=== PATIENT | female | born 1990 | race Caucasian/White ===

== ENCOUNTER → 2022-10-25 | Outpatient (CLI) | payer SELFPAY ==
[2022-10-25 13:09] LABS: Absolute Neutrophil Count 3.7 X10^3/uL (2.0-7.7); Basophil# 0.08 X10^3/uL; Basophil% 1.2 % (0-1); Eosinophil# 0.16 X10^3/uL; Eosinophils% 2.5 % (0-5); Hematocrit 39.9 % (37-47); Hemoglobin 13.1 g/dL (12.0-15.0); Lymphocyte % 31.2 % (19-41); Mean Corp Hgb Conc 32.8 g/dL (32-36); Mean Corpuscular Hgb 31.3 pg (27.0-32.0); Mean Corpuscular Volume 95.2 fL (81-99); Monocyte# 0.42 X10^3/uL; Monocyte% 6.6 % (0-10); NRBC Flagged by Analyzer 0 % (0-5); Neutrophil # 3.74 X10^3/uL (2.7-7.7); Neutrophil % 58.3 % (47-70); Platelet Count 354 K/mm3 (150-450); RBC Distribution Width CV 12.4 % (11.6-14.6); RBC Distribution Width SD 43.1 fl (35.1-43.9); Red Blood Count 4.19 M/mm3 (4.2-5.4); White Blood Count 6.4 K/mm3 (4.4-11.0)
[2022-10-25 13:32] LABS: ALB/GLOB Ratio 1.1 RATIO (0.9-2.4); AST(SGOT) 16 U/L (15-37); Alanine Aminotransfer ALT/SGPT 50 U/L (13-56); Albumin, Serum 3.9 g/dL (3.2-5.0); Alkaline Phosphatase 92 U/L (45-117); Anion Gap 5 (5-15); BUN 10 mg/dL (7-18); BUN/Creat Ratio 12.9 RATIO (10-20); Calcium,Total 9.6 mg/dL (8.5-10.1); Chloride 108 mmol/L (98-107); Creatinine, Serum 0.78 mg/dL (0.55-1.02); EST Glomerular Filtration Rate 92 mL/min (>60); Est Glom Filt Rate - Afr Amer 112 mL/min (>60); Globulin 3.7 g/dL (2.2-4.2); Glucose 97 mg/dL (74-106); Lipase 46 U/L (13-75); Potassium 4.1 mmol/L (3.5-5.1); Protein, Total 7.6 g/dL (6.4-8.2); Sodium Level 139 mmol/L (136-145)
== END | disposition home or self-care (01) ==
PROVIDERS: PCP Internal Medicine; Referring Provider Internal Medicine; Visit Provider Internal Medicine
DX: K80.50 Calculus of bile duct without cholangitis or cholecystitis without obstruction (principal)
CPT/HCPCS: 36415; 80053; 83690; 85025

== ENCOUNTER → 2022-11-12 | Outpatient (CLI) | payer SELFPAY ==
--- NOTE | 2022-11-12 13:25 | MRI_ITS ---
INDICATION: Common bile duct stone, abdomen pain, discomfort, gallstones, infection x1yr EXAMINATION: MRI - MR MRCP W/O Contrast TECHNIQUE: Multiplanar and multisequence MR images of the abdomen were obtained with MRCP sequence. Three-dimensional post-processing reconstructions were performed. IV Contrast Dosage and Agent: None. COMPARISON: No relevant prior comparison study available FINDINGS: LIVER: No mass. Normal morphology. GALLBLADDER AND BILIARY TREE: Multiple stones are seen in the gallbladder lumen. No wall thickening or adjacent edema. The CBD measures 0.3 cm. No intra- or extrahepatic biliary dilation. There is a 0.4 cm filling defect seen within the common duct, best seen on series 1002 image 1. PANCREAS: No mass. No pancreatic duct dilation. SPLEEN: Non-enlarged. ADRENAL GLANDS: No nodules. KIDNEYS: Normal renal size and position. No hydronephrosis. No mass. LYMPH NODES: No enlarged periportal or retroperitoneal lymph nodes. PERITONEUM: No ascites or fluid collection. VESSELS: Aorta is non-dilated. LOWER CHEST: No pleural effusion. MRI/MRCP Abdomen without Contrast IMPRESSION: Cholelithiasis. No biliary ductal dilatation. Small filling defect seen within the common bile duct. Electronically Signed: Ambrose Dickinson MD at 2:11 EDT ,
== END | disposition home or self-care (01) ==
PROVIDERS: PCP Internal Medicine; Referring Provider Internal Medicine; Visit Provider Internal Medicine
DX: K80.50 Calculus of bile duct without cholangitis or cholecystitis without obstruction (principal)
CPT/HCPCS: 74181

== ENCOUNTER → 2023-09-30 | Outpatient (CLI) | payer SELFPAY ==
[2023-09-30 11:29] LABS: Absolute Lymphocyte Count 1.28 X10^3/uL (0.83-4.51); Absolute Neutrophil Count 2.2 X10^3/uL (2.0-7.7); Basophil# 0.04 X10^3/uL; Eosinophil# 0.12 X10^3/uL; Hemoglobin 12.9 g/dL (12.0-15.0); Lymphocyte # 1.28 X10^3/ul (0.83-4.51); Lymphocyte % 32.5 % (19-41); Mean Corp Hgb Conc 33.1 g/dL (32-36); Mean Corpuscular Hgb 31.5 pg (27.0-32.0); Mean Corpuscular Volume 95.1 fL (81-99); Mean Platelet Vol. 10.4 fl (6.2-12.0); Monocyte# 0.29 X10^3/uL; Monocyte% 7.4 % (0-10); NRBC Flagged by Analyzer 0 % (0-5); Neutrophil % 55.8 % (47-70); Platelet Count 287 K/mm3 (150-450); RBC Distribution Width CV 11.9 % (11.6-14.6); RBC Distribution Width SD 41.3 fl (35.1-43.9); White Blood Count 3.9 K/mm3 (4.4-11.0)
[2023-09-30 12:05] LABS: ALB/GLOB Ratio 1.1 RATIO (0.9-2.4); AST(SGOT) 33 U/L (15-37); Alanine Aminotransfer ALT/SGPT 53 U/L (13-56); Albumin, Serum 3.9 g/dL (3.2-5.0); Alkaline Phosphatase 70 U/L (45-117); Anion Gap 2 (5-15); BUN 11 mg/dL (7-18); BUN/Creat Ratio 15.9 RATIO (10-20); Calcium,Total 10.4 mg/dL (8.5-10.1); Chloride 107 mmol/L (98-107); Creatinine, Serum 0.69 mg/dL (0.55-1.02); EST Glomerular Filtration Rate 105 mL/min (>60); Est Glom Filt Rate - Afr Amer 127 mL/min (>60); Globulin 3.4 g/dL (2.2-4.2); Glucose 93 mg/dL (74-106); Potassium 4.5 mmol/L (3.5-5.1); Protein, Total 7.3 g/dL (6.4-8.2); Sodium Level 138 mmol/L (136-145)
== END | disposition home or self-care (01) ==
LOC: LAB 10:33
PROVIDERS: PCP Internal Medicine; Referring Provider Student in an Organized Health Care Education/Training Program; Visit Provider Student in an Organized Health Care Education/Training Program
DX: K80.50 Calculus of bile duct without cholangitis or cholecystitis without obstruction (principal)
CPT/HCPCS: 36415; 80053; 85025

== ENCOUNTER → 2023-10-18 | Outpatient (CLI) | payer SELFPAY ==
--- NOTE | 2023-10-18 15:43 | MRI_ITS ---
EXAM: MR ABDOMEN WITHOUT INTRAVENOUS CONTRAST, MRCP PROTOCOL CLINICAL INDICATION: CBD stone TECHNIQUE: Multiplanar and multisequence MR images of the abdomen without intravenous contrast obtained with MRCP sequence. Three-dimensional post-processing reconstructions were performed. COMPARISON: 11/12/2022. FINDINGS: LOWER THORAX: Unremarkable. No pleural effusion. LIVER: Unremarkable. Normal morphology. GALLBLADDER AND BILE DUCTS: Cholelithiasis. No gallbladder distention or wall edema. No intra- or extrahepatic biliary ductal dilation. No choledochal filling defect. PANCREAS: Unremarkable. No focal cystic mass. No pancreatic duct dilation. SPLEEN: Unremarkable. Non-enlarged. ADRENALS: Unremarkable. No nodules. KIDNEYS AND URETERS: Unremarkable. Normal renal size and position. No hydronephrosis. INTRAPERITONEAL SPACE: Unremarkable. No ascites or other fluid collection. VASCULATURE: Unremarkable. Abdominal aorta is non-dilated. LYMPH NODES: No enlarged lymph nodes. MRI/MRCP Abdomen without Contrast IMPRESSION: Cholelithiasis. No bile duct stones or biliary dilatation. Electronically Signed: Ajith Johnson MD at 23:53 EDT ,
== END | disposition home or self-care (01) ==
PROVIDERS: PCP Internal Medicine; Referring Provider Student in an Organized Health Care Education/Training Program; Visit Provider Student in an Organized Health Care Education/Training Program
DX: K80.50 Calculus of bile duct without cholangitis or cholecystitis without obstruction (principal)
CPT/HCPCS: 74181

== ENCOUNTER → 2023-11-25 | Outpatient (CLI) | payer SELFPAY ==
[2023-11-25 11:13] LABS: Absolute Lymphocyte Count 1.32 X10^3/uL (0.83-4.51); Absolute Neutrophil Count 2.7 X10^3/uL (2.0-7.7); Basophil# 0.05 X10^3/uL; Basophil% 1.1 % (0-1); Eosinophil# 0.14 X10^3/uL; Hematocrit 42.5 % (37-47); Hemoglobin 13.9 g/dL (12.0-15.0); Lymphocyte # 1.32 X10^3/ul (0.83-4.51); Lymphocyte % 28.6 % (19-41); Mean Corp Hgb Conc 32.7 g/dL (32-36); Mean Corpuscular Hgb 31.1 pg (27.0-32.0); Mean Corpuscular Volume 95.1 fL (81-99); Mean Platelet Vol. 10.6 fl (6.2-12.0); Monocyte% 8.7 % (0-10); NRBC Flagged by Analyzer 0 % (0-5); Neutrophil # 2.69 X10^3/uL (2.7-7.7); Neutrophil % 58.4 % (47-70); Platelet Count 313 K/mm3 (150-450); RBC Distribution Width CV 11.5 % (11.6-14.6); RBC Distribution Width SD 39.8 fl (35.1-43.9); Red Blood Count 4.47 M/mm3 (4.2-5.4); White Blood Count 4.6 K/mm3 (4.4-11.0)
--- NOTE | 2023-11-25 11:50 | US_ITS ---
INDICATION: GB colic, RUQ PAIN EXAMINATION: Ultrasound US Abdomen Limited (quadrant) TECHNIQUE: Valadez scale and color doppler imaging was performed of the right upper quadrant. COMPARISON: MRCP of 10/18/2023 FINDINGS: LIVER: The liver is normal in size and echogenicity measuring about 14.4 cm in length. Hepatic venous are patent. The portal vein appears to be patent. No focal hepatic lesion. There is no free fluid. GALLBLADDER AND BILIARY TREE: Multiple gallstones are seen. Normal gallbladder wall measuring 2.8 mm. The proximal common bile duct measures 8 mm, which is within normal limits for the patient''s age. Sonographic Nathan''s sign: Negative. PANCREAS: No focal abnormality is demonstrated in the visualized portions of the pancreas. No pancreatic ductal dilatation. Right kidney: The right kidney measures 11.6 cm in length. The renal cortex measures 1.3 cm. No evidence of hydronephrosis. US/Gallbladder IMPRESSION: 1. Multiple gallstones without evidence of gallbladder wall thickening. 2. Dilated common bile duct. Repeat MRCP might be of value. Electronically Signed: Home Villarreal MD at 13:04 EDT ,
[2023-11-25 11:58] LABS: AST(SGOT) 59 U/L (15-37); Alanine Aminotransfer ALT/SGPT 170 U/L (13-56); Albumin, Serum 3.9 g/dL (3.2-5.0); Alkaline Phosphatase 189 U/L (45-117); Anion Gap 6 (5-15); BUN 11 mg/dL (7-18); BUN/Creat Ratio 16.2 RATIO (10-20); Calcium,Total 10.9 mg/dL (8.5-10.1); Chloride 106 mmol/L (98-107); Creatinine, Serum 0.68 mg/dL (0.55-1.02); EST Glomerular Filtration Rate 107 mL/min (>60); Est Glom Filt Rate - Afr Amer 130 mL/min (>60); Globulin 3.8 g/dL (2.2-4.2); Glucose 97 mg/dL (74-106); Lipase 29 U/L (13-75); Potassium 4.6 mmol/L (3.5-5.1); Protein, Total 7.7 g/dL (6.4-8.2); Sodium Level 138 mmol/L (136-145)
== END | disposition home or self-care (01) ==
PROVIDERS: PCP Internal Medicine; Referring Provider Internal Medicine; Visit Provider Internal Medicine
DX: K80.70 Calculus of gallbladder and bile duct without cholecystitis without obstruction (principal)
CPT/HCPCS: 36415; 76705; 80053; 83690; 85025

== ENCOUNTER 2023-12-06 09:22 | Day surgery (SDC) | payer SELFPAY ==
[2023-12-06] VITALS (9 sets, daily range): BP systolic 107–120; BP diastolic 68–83; PULSE 58–98; RESP 14–18; TEMP 36.5–36.9; O2SAT 100; BMI 27.8
--- NOTE | 2023-12-06 | GALL_PTH ---
PATIENT: NGOZI LIANG [place] [facility] [place][id number] AGE/SX: 33/F ROOM: RE12/06/[address]: Dr. Ajith Gómez MD : 1990 BED: DIS: 12/06/2023 SPEC #: [id number] RECD: 12/06/23 13:44 STATUS: RUMA LETI #: [id number] CARLITO: 12/06/23 00:[address]: Ajith Gómez DEPT: SURGICAL PATHOLOGY RECD BY: Ascencion Clarke ENTERED: 12/06/23 13:47 SP TYPE: KATERIN PAULA DR: Dr. Ariella Raines MD Tissues: Gallbladder, NOS Procedures: Surgery Specimen Level III HEADER OPERATION: Laparoscopic, cholecystectomy with IOC PRE-OP DIAGNOSIS: Choledocholithiasis and recurrent right upper quadrant discomfort TISSUE SUBMITTED: Gallbladder and contents MICROSCOPIC DIAGNOSIS Gallbladder and contents, cholecystectomy: Chronic cholecystitis and cholelithiasis. SJ.mr 12/09/2023 MICROSCOPIC DESCRIPTION Slides are reviewed. GROSS DESCRIPTION Received is one container labeled with the patient's name and designated gallbladder. The specimen consists of a gallbladder measuring 8.5 cm in length and up to 3.5 cm in diameter. The external surface is pink-menjivar, smooth and glistening for the most part. Focally it is granular, hemorrhagic and contains cautery artifact. The gallbladder contains green-yellow mucoid bile and multiple multifaced greenish-yellow stone and stone fragment measuring in aggregate 4.0 x 3.0 x 1.0 cm and 0.1 to 0.6cm in greatest dimension. The mucosa is bile-stained and without any mass lesions. The gallbladder wall measures up to 0.1cm in thickness. Milker Machine sections from the gallbladder and the cystic duct are submitted in one cassette. / AVERY: 12/06/2023 TC:3 CPT: 74000
[2023-12-06] MEDS: Lactated Ringers 1,000 ML 15 ML IV (09:48)
[2023-12-06 10:05] LABS: Internal QC Validated? YES +Cl - CLEAR BKGD; Pregnancy, Urine Negative Negative
--- NOTE | 2023-12-06 10:14 | PRE.ANES_ITS ---
ASA Classification* ASA Classification ASA Classification: 2 Assessment & Plan Anesthesia* Anesthesia Assessment Anesthesia Assessment: Discussed sedation and/or anesthesia options, risks, benefits, and alternatives with patient/parents/legal guardian/POA. Questions invited. The patient/parents/legal guardian/POA seems to understand and agrees to proceed with anesthesia plan. Reviewed the physical assessment, medical history, allergy history and patient home medications list prior to surgery/procedure/anesthetic and documented any changes. Performed airway and anesthesia risk assessments. Anesthesia Type Anesthesia Type: General (see written pre anesthesia record for full assessment) Anesthesia Focused Assessment* Temperature: 98.5 F Pulse Rate: 70 Blood Pressure: 115/83 Respiratory Rate: 18 Pulse Ox: 100 Airway Assessment Mouth opens: >3 cm Mallampati Score: II Focused Labs Anesthesia Preop lab: CBC WBC 4.6 K/mm3 (4.4-11.0) 11/25/23 10:57 RBC 4.47 M/mm3 (4.2-5.4) 11/25/23 10:57 Hgb 13.9 g/dL (12.0-15.0) 11/25/23 10:57 Hct 42.5 % (37-47) 11/25/23 10:57 Plt Count 313 K/mm3 (150-450) 11/25/23 10:57 CHEMISTRY Potassium 4.6 mmol/L (3.5-5.1) 11/25/23 10:57 Sodium 138 mmol/L (136-145) 11/25/23 10:57 BUN 11 mg/dL (7-18) 11/25/23 10:57 Creatinine 0.68 mg/dL (0.55-1.02) 11/25/23 10:57 Glucose 97 mg/dL (74-106) 11/25/23 10:57 COAG Urine Test Negative Negative 12/06/23 09:40 Pre-Assessment Diagnosis/Proposed Procedure Planned Operative Procedure(s): Laparoscopic, Cholecystectomy with IOC Anesthesia History 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 When Was Last Pacemaker Check QUESTION #4 FULL TEXT: You/Your Family Experience fever (hyperthermia) with Anesthesia Last Oral Intake Last Oral intake: Last Oral Intake NPO since 00:00 12/06/23 09:48 Meds taken in AM with sips of No 12/06/23 09:48 water? Meds patient instructed to take am of surgery PONV PONV - billing control clerk: PONV - billing control clerk Female Yes 12/03/23 08:26 HX of Motion Sickness No 12/03/23 08:26 HX of N/V After Surgery No 12/03/23 08:26 Non-Smoker Yes 12/03/23 08:26 Duration of Surgery greater Yes 12/03/23 08:26 than 60 minutes Number of Risk Factors 3 12/03/23 08:26 PONV Score Moderate Risk 12/03/23 08:26 Height & Weight Height & Weight: Anesthesia: Height & Weight Height 5 ft 4 in 12/06/23 09:48 Weight: 73.482 kg 12/06/23 09:48 Body Mass Index (BMI) 27.8 12/06/23 09:48 Respiratory Assessment Respiratory Assessment - billing control clerk: Respiratory Tract Infection Hx - billing control clerk Hx Respiratory Tract Infection No 12/03/23 08:26 STOP Sleep Apnea STOP Sleep Apnea - billing control clerk: STOP Sleep Apnea - billing control clerk Hx Hypertension No 12/03/23 08:26 Hx Sleep Apnea No 12/03/23 08:26 CPAP BIPAP Do you snore loudly (louder No 12/03/23 08:26 than talking or can be heard Do you often feel tired/ No 12/03/23 08:26 fatigued/ sleepy during daytime? Has anyone observed you stop No 12/03/23 08:26 breathing during sleep? STOP Results Negative 12/03/23 08:26 QUESTION #5 FULL TEXT : Do you snore loudly (louder than talking or can be heard through closed doors)? 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 Specify any problems Hx of Preganancy in last 3 N/A 12/03/23 08:26 Months Nurse Filling Out Transfusion NBUCHER 12/03/23 08:26 & Questions: Date: 12/03/23 12/03/23 08:26 Time: 08:12/03/23 08:26 Patient unable to answer at this time (ie. confused, unrespo /Reproduction History /Reproductive History - billing control clerk: /Reproductive Hx- billing control clerk Hx Now No 12/03/23 08:26 Gestational Age (in weeks): EDC: Hx Hx Para Hx Section SAB No 12/03/23 08:26 Active Medications Active Medications: Current Medications Generic Name Dose Route Start Last Admin Trade Name Freq PRN Reason Stop Dose Admin Cefazolin Sodium 2 gm/ N/A 20 mls @ 400 mls/hr 12/06/23 11:00 IV 12/06/23 11:02 PREOP ONE Lactated Ringer's 1,000 mls @ 15 mls/hr 12/06/23 09:45 12/06/23 09:48 IV 12/11/23 23:04 15 mls/hr .Q48H KIRK Administration Protocol PFSH Medical History Celiac disease Wears partial dentures Heartburn Gastric reflux Non-smoker Gallstone Recurrent infections Back problem High calcium levels Gastrointestinal problem Allergy/AdvReac Type Severity Reaction Status Date / Time No Known Drug Allergies Allergy Other Verified 12/06/23 09:43 gluten AdvReac Unknown Other Verified 12/06/23 09:43 Family History Brother Autoimmune disorder Hx of blood clots Father Hx of blood clots Grandfather Diabetes Myocardial infarction Heart disease Aunt Thyroid disorder Social History adopted: No household members: spouse housing: house number of children: 0 current occupational status: unemployed current occupational exposures/hazards: No pets and animals: No leisure activities: sports, exercise, clubs, music and games history of recent travel: No sexually active: Yes Smoking Status: Never smoker alcohol intake: current details: socially substance use type: does not use diet: gluten free and other well-balanced diet: daily or most days caffeine: Yes eating out: 1-3 times/week during the past year weight has: decreased > 10 lbs what type of physical activity do you participate in: weight training mony/latter-day: Tenriism seatbelt use: always do you feel safe at home: Yes Review of Systems (Anesthesia) ROS Narrative System reviewed and no additional complaints, except as documented.
--- NOTE | 2023-12-06 11:07 | PCM.HP.BLA ---
History and Physical Date of Admission: 12/06/23 MR#: [id number] Acct: [id number] Name: NGOZI LIANG Rep #: [id number] : 1990 Provider: Dr. Ajith Gómez MD Age/Sex: 33/F Location: [facility] Status: Signed Intake Vital Signs 11/28/2409:11 Height 5 ft 4 in Weight: 152 lb 2 oz BMI 26.1 BP 108/73 Blood Pressure Location Rt brachial Position Sitting Respiration 18 Pulse 82 Pulse Source Monitor Temp 97.4 F L Temp Source Temporal Pulse Oximetry (%) 100 Oxygen Delivery Method room air Intake Visit Reasons: GALLBLADDER Chief Complaint: Gallbladder Business Representative Required: No Accompanied by: Is patient in pain?: No Allergies gluten Allergy (Severe, Uncoded 11/29/23 10:12) Other Medications ?Medication ?Instructions ?Recorded ?Confirmed ?Type ursodiol 300 mg capsule 300 mg PO BID #90 caps 10/23/23 11/29/23 Rx PFSH Medical History Gallstone Recurrent infections Back problem High calcium levels Gastrointestinal problem Family History Brother Autoimmune disorder Hx of blood clotsFather Hx of blood clotsGrandfather Diabetes Myocardial infarction Heart diseaseAunt Thyroid disorder Social History adopted: No household members: spouse housing: house number of children: 0 current occupational status: unemployed current occupational exposures/hazards: No pets and animals: No leisure activities: sports, exercise, clubs, music and games history of recent travel: No sexually active: Yes Smoking Status: Never smoker alcohol intake: current details: socially substance use type: does not use diet: gluten free and other well-balanced diet: daily or most days caffeine: Yes eating out: 1-3 times/week during the past year weight has: decreased > 10 lbs what type of physical activity do you participate in: weight training mony/roman catholic: Buddhism seatbelt use: always do you feel safe at home: Yes HPI HPI HPI: Patient is a 33-year-old female who presents for history of choledocholithiasis and recurrent right upper quadrant discomfort. They are referred for surgical consultation from Dr. Macias. Patient presents today with her . She shares that she was first diagnosed with gallstones in 2021 when she was experiencing gallbladder attacks. She recalls these attacks felt as extreme, severe pain. Her recalls that he would be awakened between 12 and 1:00 in the morning with her complaining of this pain. She shares that the pain was so intense she could hardly breathe and that she had experienced some cold sweats. She was advised by close contacts that this could be dealt with by dissolving the gallstones and she tried that approach. She then developed choledocholithiasis in October 2022. Surgery was discussed but, again, she declined. She did well for a time but then developed more pain in September of this year and underwent repeat MRCP that was found to show normal anatomy without evidence of ductal stones. She states that since the onset of discomfort in September she had another attack in October and then has remained in generally constant discomfort this month. She shares that she has restricted herself to a liquid only diet of water, black coffee, and Jell-O. She reports that she experiences more central upper abdominal pain that is associated with nausea and vomiting in response to eating. She describes experiencing this pain in response to just eating a small amount of white rice. She distinguishes this from the gallbladder attack she experienced previously. She confesses that she has been told by family listening to her complaints that it sounds as though she may have it sounds as though she may have ulcers. ROS General General: Yes weight change and fatigue; No appetite, colon cancer, breast cancer or weakness HEENT HEENT: No difficulty swallowing, eye injury, eye surgery, swollen glands or hoarseness Endo Endocrine: No thyroid disease, diabetes mellitus, thyroid cancer, Hair loss, heat intolerance or cold intolerance Skin Skin: No rash or changing moles Breast Breast: No left breast lump, right breast lump, nipple discharge, breast pain, abnormal mammogram, abnormal US or breast enlargement Musc Musculoskeletal: No back problems, arthritis, rheumatoid arthritis, gout or joint pain Cardio Cardiovascular: No murmur, pacemaker, heart disease, atrial fibrillation, high blood pressure, heart attack, heart stent, palpitations, shortness of breat with exertion or chest pain Psych Psychiatric: No depression, anxiety or hearing voices Resp Respiratory: No shortness of breath, No sleep apnea, No cough, No COPD, No asthma, No emphysema and No wheezing Gastro Gastrointestinal: Yes abdominal pain, Yes nausea or vomiting, No diarrhea, No constipation, No blood in stool, Yes acid reflux, No hemorrhoids, No ulcers, Yes gallbladder problem and Yes black,tarry stools Gallo Hematologic: No blood thinners, No blood disorders, No bleeding, No anemia and No blood clots Neuro Neurologic: No system reviewed and no additional complaints, except as documented, No as per HPI, No abnormal gait, No abnormal hearing, No abnormal movements, No abnormal speech, No behavioral changes, No burning sensations, No confusion, No convulsions, No disequilibrium, No dizziness, No localized weakness, No frequent falls, No headache(s), No lack of coordination, No loss of vision, No memory loss, No numbness, No other visual disturbances, No radicular pain, No restless legs, No sensory deficit, No syncope, No tingling, No tremor(s), No weakness and No other Exam Const General: cooperative, healthy appearing and comfortable Orientation: alert, awake and oriented x3 Resp Effort & Inspection: normal respiratory effort GI Other: No scars, nondistended, soft, mildly tender to palpation of the right upper quadrant. Negative Nathan sign. Assessment and Plan Assessment and Plan (1) Common bile duct calculi: Status: Acute (2) Postprandial RUQ pain: Status: Acute (3) Abnormal LFTs (liver function tests): Status: Acute Plan Patient 33-year-old female who presents with a 2-year history of cholelithiasis and a 1 year history of choledocholithiasis due to progressively frequent symptoms of right upper quadrant discomfort and nausea/vomiting. Patient has had multiple MRCP's and ultrasounds. In October 2022 she had a diagnosis of choledocholithiasis but follow-up MRCP in September of this year showed that that stone it spontaneously passed. At her most recent lab check 4 days ago she had evidence of transaminitis with elevated alkaline phosphatase and ultrasound showed mildly dilated common bile duct. Taken together, this is concerning for passage of recent gallstone. I had a tracy conversation with and Mrs. Liang discussing her history of abdominal symptoms and how they have changed over time. I shared with them that there is a possibility she could be symptomatic from peptic ulcer disease as distinct from or in conjunction with her gallbladder problems. However, I did recommend proceeding with cholecystectomy and intraoperative cholangiography as previously planned given the objective evidence of cholestasis. I described the procedure for laparoscopic cholecystectomy with intraoperative cholangiography in detail and used hand drawings to illustrate relevant points. I was careful to bring out the implications of a positive cholangiogram and how this would require an inpatient stay, likely, with additional ERCP. and Mrs. Liang expressed appreciation for this description and agreement with the plan as outlined. Patient is pending surgery for 12/06/2023. I have examined the patient and the H&P has been reviewed. There are no clinical changes since date of exam. Procedure expectations were reviewed. Also reviewed postprocedure activity and wound care instructions. Neither patient nor her have any further questions. Proceed to the OR for laparoscopic cholecystectomy with intraoperative cholangiogram.
[2023-12-06] MEDS: Cefazolin 2 GM in Syringe IV (11:20)
--- NOTE | 2023-12-06 11:45 | RAD_ITS ---
EXAM: FL CHOLANGIOGRAPHY AND/OR PANCREATOGRAPHY CLINICAL INDICATION: LAP WILFRED W/ IOC TECHNIQUE: Fluoroscopic cholangiogram and/or pancreatography of the right upper quadrant. Fluoroscopic guidance was provided by a physician. Total fluoroscopic time is 45.6 seconds and total dose is 13.01 mGy. COMPARISON: Gallbladder ultrasound, 11/25/2023 FINDINGS AND RAD/Cholangiogram/ O R,Initial IMPRESSION: Intraoperative cholangiogram. Refer to the operative note for complete details. Electronically Signed: Savage Raymond DO at 15:59 EDT ,
[2023-12-06] MEDS: Bupiv/Epi 0.25% 30 ML Vial (12:37)
--- NOTE | 2023-12-06 12:40 | OP.PCM_ITS ---
Report of Operation Date of Procedure: 12/06/23 Pre-Operative Diagnosis: 1. History of choledocholithiasis 2. Biliary colic Post-Operative Diagnosis: 1. History of choledocholithiasis 2. Biliary colic 3. Chronic cholecystitis Surgery/Procedure Performed:: Laparoscopic cholecystectomy with intraoperative cholangiogram Description of Surgical Findings:: ? Evidence of mild chronic cholecystitis with inflammation and adhesions to the adjacent duodenum ? Cholangiogram showing normal biliary anatomy with no filling defect representing bubble versus migratory stone within the distal cystic duct. Completion cholangiogram did show any evidence of filling defect. Surgeon: Ajith Gómez special delivery clerk: Bernice Bernal Type of Anesthesia: General/Supplemental Anesthesiologist: Josias Da Silva Specimen's removed: Gallbladder Drains: None Estimated Blood Loss (mL): 5 Description of Procedure: After proper identification in the preoperative holding area the patient was brought to the operating room where she was positioned supine on the operating room table. Preoperatively the scratch SCDs were placed and antibiotics were administered. General anesthesia was then induced. Patient's abdomen was prepped and draped in usual sterile fashion. A formal timeout was conducted to confirm both patient and the procedure. Procedure was begun with a supraumbilical incision which was extended deeply down to the level of the fascia. The fascia was elevated and incised, as well as the peritoneum. A finger sweep was performed to ensure there were no underlying adhesions and a 12 mm balloon trocar was inserted. Pneumoperitoneum was established at 15 mmHg. Three additional trocars (all 5 mm) were placed in the epigastrium and in the right upper quadrant. Inspection of the peritoneum revealed no inadvertent injury to the viscera below. The gallbladder was visualized with with mild inflammation and adhesions to the infundibular portion of the gallbladder. These adhesions were taken down bluntly and with selective electrocautery, then the gallbladder fundus was then grasped and elevated cephalad. Using careful dissection the peritoneum was opened and the structures of the hepatocystic triangle were delineated. Once the critical view of safety was obtained, the cystic duct was singly clipped and partially divided with a ductotomy. Using an [employer] [place] clamp, a cholangiocatheter was fed into the proximal segment of the cystic duct and clamped into place. Under fluoroscopy a cholangiogram was then obtained showing a slightly longer than average cystic duct flowing into a common bile duct with partial obstruction from a filling defect that eventually migrated out of the duct with repeat flushing. There was also retrograde flow through the common hepatic duct into the right and left hepatic ducts. Satisfied with this result, the cholangiocatheter was withdrawn and the proximal cystic duct was sealed with clips and the cystic duct was completely transected. The same process was used for the cystic artery. The gallbladder was then removed from the gallbladder fossa with the use of electrocautery. Selective electrocautery was used to obtain hemostasis in the gallbladder fossa. The gall bladder was placed in an Endo Catch bag and removed from the peritoneum. Morison's pouch was irrigated and the effluent was suctioned free of the peritoneum. Hemostasis was again confirmed. Pneumoperitoneum was evacuated and the fascia of the 12 mm port site was closed with #1Vicryl in a [id number] fashion. A total of 30 mL of anesthetic was injected at the port sites for postoperative pain control. The skin of each port site was then closed in subcuticular fashion using 4-0 Monocryl. Steri-Strips and bandages were applied as dressings. Patient tolerated the procedure well without any apparent complications. On emergence from their anesthetic the patient was taken to PACU for ongoing recovery. SLAB STRIPPER assisted with camera operation and closure of port sites at the conclusion of the operation. Grafts/Implants Used: None Complications None Admit VTE Documentation VTE Mechan Device Prophylaxis: SCD's Procedures Digestive 40xxx-49xxx: 99956 Laparo cholecystectomy/graph
--- NOTE | 2023-12-06 12:45 | DCINST_ITS ---
Discharge Instructions Diet Discharge Diet: No restrictions Activity Discharge Activity: May Not Drive (No driving while using narcotic pain medication) and May Shower (Postoperative day 1) May shower in (days): 2 Ice area for (Minutes): 20 Lifting Restrictions: No lifting greater than 15 pounds for 2 weeks after surgery Dressing / Incision Call your doctor if your incision/area has: Continuous Slow Oozing, Increased Pain/ Swelling, Increased Redness, Foul Smelling Discharge and Swelling at the incision site Call your doctor if you observe: Fever of 101 or Higher Remove Dressing in: 2 days (Please leave Steri-Strips intact until they fall off spontaneously or are taken off at your follow-up visit) Cleanse incision/area with: Soap & Water Follow Up Care Please Follow Up With: Ajith Gómez MD When: 7-10days postop Test Results: Test results from this visit will be discussed in further detail at your follow- up appointment, if applicable. Discharge Plan Admission Primary Reason for Your Visit: Gallbladder surgery Attending Provider: Ajith Gómez Primary Care Provider: Ariella Raines Instructions Print Language: Surinamese Discharge Orders/Prescriptions Prescriptions: New oxycodone 5 mg tablet 5 mg PO Q6H PRN (Reason: pain) 3 Days Qty: 10 0RF Referrals / Follow Up: Ariella Raines MD [Primary Care Provider] - Disposition Disposition (needs filled in before D/C Order can be placed): Home, Self Care
--- NOTE | 2023-12-06 12:52 | PCM.POST.ANE ---
Anesthesia: Postop Eval I Current Vital Signs Temperature: 97.7 F Pulse Rate: 98 Blood Pressure: 119/68 Respiratory Rate: 16 Pulse Ox: 100 Oxygen Delivery Method: Room Air Assessment Airway patent: Yes Spontaneous unlabored respirations: Yes Mental status: Awake and Calm nausea: No Vomiting: No Anesthesia Complication: No Fluid Hydration Crystalloid volume administer (ml): 900 Total IV fluid infused: 900 Progress Note Anesthesia document: Postop Eval 1 completed: Yes
[2023-12-06] MEDS: oxyCODONE 5 MG Tablet PO (14:01)
--- NOTE | 2023-12-06 16:07 | POSTOPAN2_ITS ---
Anesthesia Postop Eval I Sum Postop Eval Completion status Anesthesia document: Postop Eval 1 completed: Yes Anesthesia Postop Eval I Summary Anesthesia Postop Eval I Summary: Anesthesia Postop Eval I: Assessment Summary Airway patent Yes 12/06/23 12:53 HEAD [email or web address] Spontaneous unlabored Yes 12/06/23 12:53 HEAD ATHLETIC [email or web address] respirations Mental status Awake,Calm 12/06/23 12:53 HEAD ATHLETIC TRAINER.[email or web address] nausea No 12/06/23 12:53 HEAD ATHLETIC TRAINER.[email or web address] Vomiting No 12/06/23 12:53 HEAD ATHLETIC [email or web address].[email or web address] Anesthesia Postop Eval I: Fluid Summary Crystalloid volume administer 900 12/06/23 12:53 HEAD [email or web address] [email or web address] (ml) Colloids volume administered ( ml) Blood Product volume administered (ml) Total IV fluid infused 900 12/06/23 12:53 HEAD ATHLETIC TRAINER.[email or web address] Anesthesia Postop Eval I: Summary Notes Anesthesia Complication No 12/06/23 12:53 HEAD ATHLETIC [email or web address] Anesthesia Complication Comment: Post-operative progress note Anesthesia: Postop Eval II Evaluation Mental status: Awake and Calm Pain Level: 1 nausea: No Vomiting: No Complications Anesthesia Complication: No
--- NOTE | 2023-12-06 16:07 | PCM.POSTANE2 ---
Anesthesia Postop Eval I Sum Postop Eval Completion status Anesthesia document: Postop Eval 1 completed: Yes Anesthesia Postop Eval I Summary Anesthesia Postop Eval I Summary: Anesthesia Postop Eval I: Assessment Summary Airway patent Yes 12/06/23 12:53 EQUIPMENT [email or web address] Spontaneous unlabored Yes 12/06/23 12:53 EQUIPMENT TECHNICIAN.[email or web address] respirations Mental status Awake,Calm 12/06/23 12:53 EQUIPMENT [email or web address] nausea No 12/06/23 12:53 EQUIPMENT TECHNICIAN.[email or web address] Vomiting No 12/06/23 12:53 EQUIPMENT [email or web address] Anesthesia Postop Eval I: Fluid Summary Crystalloid volume administer 900 12/06/23 12:53 EQUIPMENT [email or web address] (ml) Colloids volume administered ( ml) Blood Product volume administered (ml) Total IV fluid infused 900 12/06/23 12:53 EQUIPMENT [email or web address] Anesthesia Postop Eval I: Summary Notes Anesthesia Complication No 12/06/23 12:53 EQUIPMENT [email or web address] Anesthesia Complication Comment: Post-operative progress note Anesthesia: Postop Eval II Evaluation Mental status: Awake and Calm Pain Level: 1 nausea: No Vomiting: No Complications Anesthesia Complication: No
== END 2023-12-06 16:11 | disposition home or self-care (01) ==
LOC: SDC 09:24 → AC 09:30
PROVIDERS: Anesthesiology; PCP Internal Medicine; Referring Provider Surgery; Visit Provider Surgery
PROC: (CPT 47610; principal; 2023-12-06 10:40)
DX: K80.64 Calculus of gallbladder and bile duct with chronic cholecystitis without obstruction (principal); K82.8 Other specified diseases of gallbladder
CPT/HCPCS: 47563; 00790; 74300; 76000; 81025; 88304; 93005; J7120; J2405